=== PATIENT | female | born 1940 | race Caucasian/White ===

== ENCOUNTER 2019-05-12 22:07 | Emergency (ER) | payer MEDICARE, OTHER ==
[~2019-05-12] VITALS: Ht 162.6 cm; Wt 65.8 kg
[2019-05-12 23:04] LABS: ABSOLUTE BASOPHILS 0.1 thou/uL (0.0-0.2); ABSOLUTE EOSINOPHILS 0.1 thou/uL (0.0-0.7); ABSOLUTE LYMPHOCYTES 1.2 thou/uL (0.8-5.3); ABSOLUTE MONOCYTES 0.6 thou/uL (0.0-1.2); ABSOLUTE NEUTROPHILS 4.6 thou/uL (1.6-8.1); BASOPHILS 1.1 %; EOSINOPHILS 1.9 %; HEMATOCRIT 40.1 % (37.0-47.0); HEMOGLOBIN 13.4 gm/dL (12.0-15.0); LYMPHOCYTES 18.4 %; MCH 27.1 pg (26.0-34.0); MCHC 33.5 g/dL (28.0-37.0); MCV 80.9 fL (80.0-100.0); MONOCYTES 9.3 %; MPV 8.9 fl. (7.2-11.1); NUCLEATED RBCS 0 /100WBC; PLATELET COUNT* 151 thou/uL (150-400); POLYS 69.3 %; RBC 4.95 mil/uL (4.20-5.00); RDW-CV 26.3 % (10.5-14.5); WBC 6.6 thou/uL (4.0-11.0)
[2019-05-12 23:12] LABS: CREATININE 0.8 mg/dL (0.6-1.3); POTASSIUM 3.6 mmol/L (3.5-5.1)
[2019-05-12 23:17] LABS: ALBUMIN 3.3 g/dL (3.4-5.0); TOTAL BILIRUBIN 0.8 mg/dL (<0.1-1.0); TOTAL PROTEIN 6.9 g/dL (6.4-8.2)
[2019-05-12 23:37] LABS: INFLUENZA A ANTIGEN Negative (Negative); INFLUENZA B ANTIGEN Negative (Negative)
[2019-05-13 00:55] LABS: URINE BILIRUBIN NEGATIVE (Negative); URINE BLOOD NEGATIVE (Negative); URINE CLARITY CLEAR; URINE COLOR YELLOW; URINE GLUCOSE-RANDOM NEGATIVE (Negative); URINE KETONES TRACE (Negative); URINE LEUKOCYTES-REFLEX NEGATIVE (Negative); URINE NITRITE-REFLEX NEGATIVE (Negative); URINE PROTEIN NEGATIVE (Negative); URINE UROBILINOGEN 0.2 E.U./dl (0.2-1.0)
[2019-05-13 01:03] VITALS: BP 140/66
[2019-05-13 03:07] LABS: ANISOCYTOSIS 2+; POIKILOCYTOSIS 2+
[2019-05-13 03:08] LABS: OVALOCYTES 1+; POLYCHROMASIA 1+; SCHISTOCYTES 1+; TARGET CELLS 1+; TEARDROPS 1+
--- NOTE | 2019-05-13 11:45 | EKG ---
[place] [address] ELECTROCARDIOGRAM REPORT Name: AUBRIE CARNES [id number] Admission: 05/12/19 Attend Phys: Discharge: 05/13/19 Date of : 38 Report #: [id number] THIS REPORT FOR: //name// [facility] ED Test Date: 2019-05-12 Test Time: 22:13:50 Pat Name: AUBRIE CARNES Department: Room: Gender: F Water Pump Operator: DEMETRIUS : 1940 Requested By: Apoorva Macedo Order Number: [id number] Reading MD: Lukas Peres Measurements Intervals [place] Rate: 87 P: [place]: QRS: 83 QRSD: 102 T: -14 QT: 411 QTc: 495 Interpretive Statements Atrial fibrillation Anterior infarct, old Borderline T abnormalities, inferior leads No previous ECG available for comparison Electronically Signed On 05-13-2019 11:45:05 OWNER OPERATOR by Lukas Peres [email or web address] <ELECTRONICALLY SIGNED> By: Lukas Peres MD, [facility] 05/13/19 1145 2213 2213 Lukas Peres MD, FACC /EPI
[2019-05-14] MEDS ORDERED: HYDRALAZINE 2525 M1 PO (16:10)
[2019-05-14] MEDS ORDERED: CLONAZEPAM 0.50.5 M1 PO (16:11)
[2019-05-14] MEDS ORDERED: COZAAR 25 MG TA25 M1 PO (16:11)
[2019-05-14] MEDS ORDERED: LEVO-T25 MCG PO (16:11)
[2019-05-14] MEDS ORDERED: LIPITOR 20 MG T20 M1 PO (16:11)
[2019-05-14] MEDS ORDERED: DRIZALMA SPRINK20 MG PO (16:12)
[2019-05-14] MEDS ORDERED: SORINE 80 MG TA80 MG PO (16:12)
== END 2019-05-13 01:03 | disposition home or self-care (01) ==
LOC: M.ERS 22:07
PROVIDERS: Personal Emergency Response Attendant
DX: R55 Syncope and collapse (principal); I48.91 Unspecified atrial fibrillation; Z88.8 Allergy status to other drugs, medicaments and biological substances

== ENCOUNTER 2019-05-14 15:45 | Observation (INO) | payer MEDICARE, OTHER ==
[~2019-05-14] VITALS: Ht 162.6 cm; Wt 65.8 kg
--- NOTE | ~2019-05-14 | EKG ---
[place] [address] ELECTROCARDIOGRAM REPORT Name: AUBRIE CARNES Room: [address]#: [id number] Admission: 05/14/19 Attend Phys: Rani Nolen, Discharge: Date of : 38 Date of Service: 05/15/19 0812 Report #: [id number] THIS REPORT FOR: cc: DINA GORDON MD, CHADWICK MD Epiphany, Epiphany MD ~ THIS REPORT FOR: //name// [facility] ED Test Date: 2019-05-15 Test Time: 08:12:25 Pat Name: AUBRIE CARNES Department: Room: [place] [address] Gender: F Research Center Partner: : 1940 Requested By: Ludwig Gallagher Order Number: [id number] Reading MD: Measurements Intervals [place] Rate: 89 P: [place]: QRS: 92 QRSD: 91 T: -61 QT: 395 QTc: 481 Interpretive Statements Atrial fibrillation Right axis deviation Anteroseptal infarct, old Borderline repolarization abnormality Baseline wander in lead(s) II,aVR Compared to ECG 05/12/2019 22:13:50 Right-axis deviation now present T-wave abnormality no longer present Myocardial infarct finding still present [email or web address] By: 1 1 Epiphany EpiphMD darian /SAI
[2019-05-14 16:04] VITALS: BP 180/124
[2019-05-14] MEDS ORDERED: HYDRALAZINE 2525 M1 PO (16:10)
[2019-05-14] MEDS ORDERED: COZAAR 25 MG TA25 M1 PO (16:11)
[2019-05-14] MEDS ORDERED: LEVO-T25 MCG PO (16:11)
[2019-05-14] MEDS ORDERED: LIPITOR 20 MG T20 M1 PO (16:11)
[2019-05-14] MEDS ORDERED: CLONAZEPAM 0.50.5 M1 PO (16:11)
[2019-05-14] MEDS ORDERED: DRIZALMA SPRINK20 MG PO (16:12)
[2019-05-14] MEDS ORDERED: SORINE 80 MG TA80 MG PO (16:12)
[2019-05-14 18:18] LABS: CALCIUM 9.6 mg/dL (8.5-10.1); CREATININE 0.8 mg/dL (0.6-1.3); POTASSIUM 3.9 mmol/L (3.5-5.1)
[2019-05-14 21:55] VITALS: BP 161/54
[2019-05-15 02:20] VITALS: BP 159/80
[2019-05-15 06:07] VITALS: BP 152/72
[2019-05-15 08:28] VITALS: BP 152/65
[2019-05-15] MEDS ORDERED: FLONASE 0.05%50 MCG NASAL (08:59)
[2019-05-15] MEDS ORDERED: PREDNISONE 20 M20 M1 PO (08:59)
[2019-05-15] MEDS ORDERED: AUGMENTIN 875-1 EACH PO (08:59)
[2019-05-15 12:49] VITALS: BP 114/49
[2019-05-15 13:35] VITALS: BP 128/61
== END 2019-05-15 13:35 | disposition home or self-care (01) ==
LOC: M.ERS 15:45 → M.TBA-ER 19:45
PROVIDERS: Emergency Medicine Emergency Medical Services; ADMIT Internal Medicine
DX: R51 Headache (principal); J06.9 Acute upper respiratory infection, unspecified; B96.89 Other specified bacterial agents as the cause of diseases classified elsewhere; I10 Essential (primary) hypertension

== ENCOUNTER 2019-05-26 08:35 | Emergency (ER) | payer MEDICARE, OTHER ==
[~2019-05-26] VITALS: Ht 162.6 cm; Wt 63.5 kg
[~2019-05-26 08:35] MED LIST: AUGMENTIN 875-1 EACH PO; CLONAZEPAM 0.50.5 M1 PO; COZAAR 25 MG TA25 M1 PO; DRIZALMA SPRINK20 MG PO; FLONASE 0.05%50 MCG NASAL; HYDRALAZINE 2525 M1 PO; LEVO-T25 MCG PO; LIPITOR 20 MG T20 M1 PO; PREDNISONE 20 M20 M1 PO; SORINE 80 MG TA80 MG PO
[2019-05-26] MEDS ORDERED: ASA81BEC PO (08:59)
[2019-05-26] MEDS ORDERED: PROTONIX40 M4 PO (09:00)
[2019-05-26 09:20] LABS: ABSOLUTE LYMPHOCYTES 0.9 thou/uL (0.8-5.3); ABSOLUTE NEUTROPHILS 10.6 thou/uL (1.6-8.1); BASOPHILS 0.4 %; HEMATOCRIT 41.6 % (37.0-47.0); LYMPHOCYTES 7.3 %; MCH 27.1 pg (26.0-34.0); MCHC 33.6 g/dL (28.0-37.0); MCV 80.7 fL (80.0-100.0); MONOCYTES 8.1 %; MPV 8.6 fl. (7.2-11.1); NUCLEATED RBCS 0 /100WBC; PLATELET COUNT* 146 thou/uL (150-400); POLYS 84.2 %; RBC 5.16 mil/uL (4.20-5.00); RDW-CV 25.6 % (10.5-14.5); WBC 12.6 thou/uL (4.0-11.0)
[2019-05-26 09:22] LABS: BE 5.5 mmol/L (-2 to +3); PCO2 33.1 mmHg (35.0-45.0); PO2 79.2 mmHg (75.0-100.0)
[2019-05-26 09:23] LABS: CALCIUM 8.4 mg/dL (8.5-10.1); CREATININE 0.8 mg/dL (0.6-1.3); POTASSIUM 3.5 mmol/L (3.5-5.1)
[2019-05-26 09:28] LABS: ALBUMIN 3.1 g/dL (3.4-5.0); MAGNESIUM 1.8 mg/dL (1.8-2.4); TOTAL BILIRUBIN 0.6 mg/dL (<0.1-1.0); TOTAL PROTEIN 7.2 g/dL (6.4-8.2)
[2019-05-26] MEDS ORDERED: ELIQUIS5 MG PO (10:43)
[2019-05-26 11:17] LABS: APTT 29.4 Seconds (25.0-31.3); INR 1.1; PROTIME 10.8 Seconds (9.20-11.50)
[2019-05-26 11:20] VITALS: BP 170/72
--- NOTE | 2019-05-27 13:57 | EKG ---
[place] [address] ELECTROCARDIOGRAM REPORT Name: AUBRIE CARNES Room: [facility]#: [id number] Admission: 05/26/19 Attend Phys: Discharge: 05/26/19 Date of : 38 Date of Service: 05/26/19 0851 Report #: [id number] THIS REPORT FOR: cc: DINA GORDON MD, CHADWICK MD Holkins,Arik Penny MD [facility] ~ THIS REPORT FOR: //name// [facility] ED Test Date: 2019-05-26 Test Time: 08:51:54 Pat Name: AUBRIE CARNES Department: Room: Gender: F Head Of Academic Technology: MARCIA : 1940 Requested By: Apoorva Macedo Order Number: [id number] Reading MD: Arik Velez Measurements Intervals [place] Rate: 77 P: [place]: QRS: 97 QRSD: 110 T: -65 QT: 407 QTc: 461 Interpretive Statements Atrial fibrillation Right axis deviation Anteroseptal infarct, old possible Nonspecific repol abnormality, lateral leads Compared to ECG 05/15/2019 08:12:25 No significant changes Electronically Signed On 05-26-2019 16:09:40 MEDICAL OFFICE SUPERVISOR by Arik Velez [email or web address] <ELECTRONICALLY SIGNED> By: Arik Velez MD, [facility] 05/26/19 1609 0 0851 Arik Velez MD, [facility] /EPI
== END 2019-05-26 11:20 | disposition short-term general hospital (02) ==
LOC: M.ERS 08:35
PROVIDERS: Personal Emergency Response Attendant
DX: I60.9 Nontraumatic subarachnoid hemorrhage, unspecified (principal); I48.91 Unspecified atrial fibrillation; Z98.890 Other specified postprocedural states; Z88.8 Allergy status to other drugs, medicaments and biological substances

== ENCOUNTER 2019-06-11 13:16 | Inpatient (IN) | payer MEDICARE, OTHER ==
[~2019-06-11] VITALS: Ht 162.6 cm; Wt 63.0 kg
[~2019-06-11 13:16] MED LIST changes: +ASA81BEC PO; +ELIQUIS5 MG PO; +PROTONIX40 M4 PO
[2019-06-11] MEDS ORDERED: SYNTHROID112 MC1 PO (14:43)
[2019-06-11] MEDS ORDERED: PROVIGIL 100 M100 MG PO (14:45)
[2019-06-11] MEDS ORDERED: CALCIUM + VITA1 EACH PO (14:47)
[2019-06-11] MEDS ORDERED: FUROSEMIDE 20 M20 MG PO (14:48)
[2019-06-11] MEDS ORDERED: CARVEDILOL25 MG PO (14:50)
[2019-06-11] MEDS ORDERED: OXYCODONE HCL 55 MG PO (14:56)
[2019-06-11] MEDS ORDERED: TYLENOL EXTRA500 MG PO (14:59)
--- NOTE | 2019-06-11 17:45 | NUR ---
79 YR OLD FEMALE ADMITTED TO ROOM 320 S/P RIGHT CRANIOTOMY. PT FELL 05/24 AND CAME TO THE ED 05/26 C/O HEADACHES AND AMS. SHE WAS TRANSFERRED TO [facility] WHEN SHE WAS FOUND TO HAVE A SUBARACHNOID HEMORRHAGE AND A SUB VENTRICULAR HEMORRAGE. PT TRANSFERRED FROM THE WHEELCHAIR TO BED WITH MIN ASSIST. PT IS AMBULATORY WITH A WALKER. ADMISSION PROCESS COMPLETED, FALL PRECAUTIONS AND HOURLY ROUNDING INITIATED.
[2019-06-11 20:16] VITALS: BP 164/66
--- NOTE | 2019-06-12 05:10 | NUR ---
ASSUMED PT CARE AT 1930. PT ALERT AND ORIENTED X4, ANXIOUS. PT TOOK HS MEDS WITH WATER WITHOUT DIFFICULTY. TYLENOL ONCE THIS SHIFT FOR HEADACHE. WORE HOME CPAP PART OF THE NIGHT. PT SET OFF BED ALARM FOUR TIMES GETTING OUT OF BED TO GO TO THE BATHROOM. PT TRANSFERS WITH GAITBELT, WALKER AND MIN ASSIST. RK TO SCALP INTACT. ADMISSION PAPERWORK SIGNED. PT REASSURED REGARDING REHAB ROUTINE AND WHAT TO EXPECT. CALL LIGHT IN REACH. BED ALARM ON FOR SAFETY. HOURLY ROUNDING IN PROGRESS, WILL CONTINUE TO MONITOR.
[2019-06-12 05:17] LABS: HEMATOCRIT 27.6 % (37.0-47.0); HEMOGLOBIN 9.5 gm/dL (12.0-15.0); MCH 28.6 pg (26.0-34.0); MCHC 34.4 g/dL (28.0-37.0); MCV 83.1 fL (80.0-100.0); MPV 7.1 fl. (7.2-11.1); RBC 3.32 mil/uL (4.20-5.00); RDW-CV 25.1 % (10.5-14.5); WBC 6.6 thou/uL (4.0-11.0)
[2019-06-12 05:40] LABS: ALBUMIN 2.3 g/dL (3.4-5.0); CALCIUM 8.7 mg/dL (8.5-10.1); CREATININE 0.6 mg/dL (0.6-1.3); POTASSIUM 4.1 mmol/L (3.5-5.1); TOTAL BILIRUBIN 0.3 mg/dL (<0.1-1.0); TOTAL PROTEIN 6.7 g/dL (6.4-8.2)
[2019-06-12 07:40] VITALS: BP 186/91
[2019-06-12 11:00] VITALS: BP 92/43
[2019-06-12 13:00] VITALS: BP 114/54
--- NOTE | 2019-06-12 13:02 | NUR ---
Nutrition: Pt admitted to rehab with TBI. 2gm Na diet. Wt: 137#. Albumin 3.2. Rx, labs, hx noted. No swallowing issues. Will follow weekly. Low nutrition risk.
--- NOTE | 2019-06-12 16:39 | NUR ---
SW met with pt and pt ex brother in law to complete initial assessment, introduce self, and SW role on inpt rehab unit. Pt alert, oriented. Pt lives at home with ex brother in law as roommate. Pt has sons who are supportive and are DPOAs. Pt said she would be only one to be informed after team conference and she would tell her family. Pt was independent and driving prior to hospitalization. Pt has 2 steps into home from outside and one step into home from garage. Pt was independent with ADLs as well. The home is ranch style so there are not stairs inside. Pt has FWW. Pt has hx of HH services after prior surgeries but does not recall the name of the agency at this time. Pt PCP is Dr Yang and she has had appt with within the last 6 months. SW to continue to follow to assist with safe dc planning.
--- NOTE | 2019-06-12 17:41 | NUR ---
PT HAS WORKED WITH THERAPIES AND IS REMINDED TO CALL FOR ASSIST. HERE PART OF DAY. PRN FOR HEADACHE GIVEN X2 TODAY WITH FAIR EFFECT. THERAPY WOULD LIKE PT TO NOT USE WALKER UNLESS NEEDED AND AMBULATE WITH GAITBELT AND MIN ASSIST UNLESS BECOMES UNSTEADY.PT CONTINENT OF B+B.PT QUIET BUT ALERT AND APPROPIATE.
[2019-06-12 20:00] VITALS: BP 153/73
--- NOTE | 2019-06-13 05:54 | NUR ---
ASSUMED CARE AT 1930. PATIENT RESTING IN BED AT CHANGE OF SHIFT. UP WITH ONE, GAIT BELT, NO WALKER. IS UNSTEADY UPON FIRST RISING FROM BED, AND USES SINK FOR BALANCE WHEN SHE WALKS PAST IT. NEEDS CUEING TO COMPLETE HAND WASHING TASKS AT TIMES. TAKES PILLS WHOLE ONE AT A TIME WITH WATER. WEARS O2 2L/NC. REFUSED CPAP STATING THAT "IT DOESN'T WORK SOMETIMES, CAN I JUST WEAR OXYGEN?" NO C/O PAIN. HEAD INCISION WELL HEALED. HOURLY ROUNDS CONTINUE. BED ALARM ON. CALL LITE IN REACH.
[2019-06-13 07:00] VITALS: BP 187/74
[2019-06-13 13:00] VITALS: BP 167/76
--- NOTE | 2019-06-13 17:20 | NUR ---
ALERT AND ORIENTED WITH OCCASSIONAL PERIODS OF FORGETFULNESS. USING PO PAIN MEDICATION TO HELP WITH PAIN. UP WITH 1 ASSIST, GAIT BELT AND WALKER. NEW ORDER FOR MELATONIN TO HELP PATIENT SLEEP AND USE CPAP MACHINE. HEALING INCISION RIGHT SIDE OF HEAD WITH NO SIGNS OR SYMPTOMS OF INFECTION. NO C/O NUMBNESS OR TINGLING. PATIENT USING CALL LIGHT WITHIN REACH. FALL PRECAUTIONS IN PLACE. BED ALARM AND CHAIR ALARM USED.
[2019-06-13 20:30] VITALS: BP 140/58
--- NOTE | 2019-06-14 05:33 | NUR ---
ASSUMED CARES AT 1920. ALERT AND ORIENTED. WORE CPAP OVERNIGHT. MIN ASSIST WITH GAIT BELT AND WALKER. UP TO BATHROOM. SLEPT MOST OF THE NIGHT. NO ISSUES. CALL LIGHT IN REACH AND BED ALARM ON.
[2019-06-14 06:14] VITALS: BP 159/62
[2019-06-14 07:31] VITALS: BP 145/66
--- NOTE | 2019-06-14 10:48 | CON ---
[facility] [address] [place] [address] CONSULTATION Name: AUBRIE CARNES Room: [address] IN M.R.#: [id number] Admission: 06/11/19 Attend Phys: Edilberto Wallace MD Discharge: Date of : 38 Report #: [id number] THIS REPORT FOR: //name// cc: DINA GORDON MD, CHADWICK MD ~ THIS REPORT FOR: //name// CC: DINA Wallace DATE OF SERVICE: 06/12/2019 CARDIOLOGY CONSULTATION HISTORY OF PRESENT ILLNESS: The patient is an 79-year-old single white female who I was asked to see in the hospital today because of elevated blood pressure. The patient has an extensive and complicated past medical history. She apparently had 5-vessel coronary artery bypass surgery at [facility] about 5 years ago. Apparently a year ago, she underwent percutaneous repair of the tricuspid valve at [facility]. Apparently a month later, however, she underwent TAVR of her aortic valve. She has a long history of atrial fibrillation and has been on Eliquis. She stays very active at this time. Apparently a month ago, the patient was confused and had a syncopal spell. Her took her to the Emergency Room at [facility] in [facility] and she was sent home. However, she continued to fall and her brought her back here to [place] where a CT scan showed evidence of an intracranial bleed. She was life flighted from [place] to [facility] and had a craniotomy for evacuation of the bleed. She was in the hospital there about 3 weeks. She has had elevated blood pressure that has been labile and a fever. Yesterday, she was transferred from [facility] to the rehab floor here at [place]. Because of her blood pressure, Cardiology consultation was requested. PAST MEDICAL HISTORY: Otherwise significant for cholecystectomy, hysterectomy, hypertension, hyperlipidemia. MEDICATIONS: Her previous medications include Lipitor, lisinopril, aspirin, Eliquis for atrial fibrillation. ALLERGIES: SHE HAS AN ALLERGY TO CODEINE. FAMILY HISTORY: Mother had heart disease. SOCIAL HISTORY: Single, lives with a significant other in [place]. She quit smoking years ago, [place] [address] CONSULTATION Name: AUBRIE CARNES Room: [address] IN [facility]#: [id number] Admission: 06/11/19 Attend Phys: Edilberto Wallace MD Discharge: Date of : 38 Report #: [id number] REVIEW OF SYSTEMS: She has no history of stroke, asthma, liver disease, kidney disease. She has a history of anemia and has required iron infusions in the past. No cancer. No psychiatric illness. PHYSICAL EXAMINATION: GENERAL: Revealed an elderly female lying in bed. She appeared in no distress. VITAL SIGNS: She had a blood pressure of 160/70, pulse is 80, she is afebrile. HEENT: She is anicteric. Conjunctivae pink. Mucous membranes moist. CHEST: Clear to auscultation. CARDIOVASCULAR: Regular rate and rhythm, grade 2 systolic ejection murmur. ABDOMEN: Soft. EXTREMITIES: No edema. SKIN: Warm and dry. NEUROLOGIC: Nonfocal. LABORATORY DATA: Her workup here at [place] included BUN 14, creatinine 0.6. Liver function studies were normal. White blood cell count 6.6, hemoglobin 9.5, hematocrit 27.6. IMPRESSION AND RECOMMENDATIONS: 1. Permanent atrial fibrillation. The patient is not on Eliquis at this time due to recent intracranial bleed. 2. Coronary artery bypass surgery. No recent angina. 3. Hypertension. The patient has been on GO inhibitor. 4. Hyperlipidemia. The patient is on a statin drug. 5. Previous transcatheter aortic valve replacement. <ELECTRONICALLY SIGNED> By: Lukas Peres MD, [facility] 06/14/19 1048 1135 [id number] Peres MD, FAC /nt
[2019-06-14 12:25] VITALS: BP 140/66
--- NOTE | 2019-06-14 13:24 | NUR ---
ASSUMED CARE AT 0730. ALERT ORIENTED PLEASANT COOPERATIVE. HX OF SDH WITH CRANIOTOMY. INCISION RT. SIDE OF HEAD HEALED MORTEZA. DOES C/O HEADACHE AT INTERVALS. TAKES MEDS WITHOUT DIFFICULTY. TYLENOL 2 TABS PO FOR H/A THIS A.M. TRANSFERS WITH SBA G BELT WALKER AMBULATES TO TOILET TO VOID AND HAD A BM ABLE TO DO HYGEINE AND CLOTHING ADJUSTMENTS. USES CALL LIGHT APPROPRIATELY FOR ASSISTANCE. SIGNIFICENT OTHER HERE TO VISIT THIS A.M. APPETITE FAIR AT BREAKFAST GOOD AT LUNCH MEAL. C/O LIGHTHEADEDNESS AFTER AMBULATION FROM DR TO ROOM BP WAS 140/66 P 80. O2 SAT 96% RA.
[2019-06-14 17:00] VITALS: BP 143/68
--- NOTE | 2019-06-14 17:14 | NUR ---
PT. STATES SHE DOESNT FEEL WELL TODAY VAGUE ABOUT WHY, VS WNL. AMBULATED IN HALLS X 2 TODAY UP IN RECLINER X 2. REASURANCE GIVEN.
[2019-06-14 19:30] VITALS: BP 122/64
--- NOTE | 2019-06-15 01:32 | NUR ---
ASSUMED CARE @ 1914-06/13-SUN.APPEARS SLEEPING IN BED W/ O2 ON @ 2L/NC.SEE PAIN MANAGEMENTS FOR FRONTAL HEADFACHE 2X @ 2050 & 0114.PRN MOM GIVEN ORAL @ 2050-PER PTS REQUEST.C PAP ON @ 2099 BUT REQUESTED OFF @ 010.HEAD BANDS ON C PAP IRRITATES DRY WOUND ON RIGHT SIDE HEAD.PLACED BACK ON O2 @ 2L/NC.HOB UP. ON HOURLY ROUNDS.HISTOLOGY TECH DOING ODD HOUR ROUNDS.
--- NOTE | 2019-06-15 05:16 | NUR ---
SLEEPING EARLY SINCE 1915 & SLEPT GOOD ALL NIGHT.BRP W/ SBA X2.TOOK ICED TEA W/ HS MEDS.TURNS SELF @ NIGHT.
[2019-06-15 06:00] VITALS: BP 126/53
[2019-06-15 07:27] VITALS: BP 140/61
--- NOTE | 2019-06-15 17:20 | NUR ---
ALERT AND ORIENTED X4 WITH PERIODS OF FORGETFULNESS. UP WITH STAND BY ASSIST, GAIT BELT AND WALKER. USED PO PAIN MEDICATION TO HELP WITH HEADACHE PAIN. O2 SAT TODAY ON ROOM AIR 97%. INCISION RIGHT SIDE OF HEAD HEALING WITH NO SIGNS OR SYNPTOMS OF INFECTIONS. USES CALL LIGHT WITHIN REACH. FALL PRECAUTIONS IN PLACE. BED ALARM AND CHAIR ALARM USED.
[2019-06-15 17:31] VITALS: BP 130/54
[2019-06-15 19:05] VITALS: BP 138/55
--- NOTE | 2019-06-16 04:52 | NUR ---
ASSUMED CARES AT 1920. ALERT AND ORIENTED. PLEASANT. PAIN MEDS GIVEN FOR HEADACHE. 02 2L NC. MIN ASSIST WITH GAIT BELT. UP TO BATHROOM. SLEPT MOST OF THE NIGHT. CALL LIGHT IN REACH AND BED ALARM ON.
[2019-06-16 06:24] VITALS: BP 140/67
[2019-06-16 07:27] VITALS: BP 127/56
--- NOTE | 2019-06-16 10:55 | NUR ---
PT BECAME DIZZY WHILE SITTING IN CHAIR IN HALLWAY AND NAUSEA. PT STARTED TO AMBULATE TO BATHROOMAND STARTED HAVING EMISIS OF UNDIGESTED FOODS. AFTER SITTING PT DID AMBULATE TO BATHROOM AND HAD INC BM.PT REMAINED ALERT AND ORIENTATED. PERICARE GIVEN AND PT AMBULATED TO BED. PB WAS 107/40 WITH PULSE 85.PT RESTS IN BED.
[2019-06-16 11:15] VITALS: BP 117/59
[2019-06-16 13:22] LABS: ABSOLUTE BASOPHILS 0.1 thou/uL (0.0-0.2); ABSOLUTE EOSINOPHILS 0.2 thou/uL (0.0-0.7); ABSOLUTE LYMPHOCYTES 0.9 thou/uL (0.8-5.3); ABSOLUTE MONOCYTES 0.7 thou/uL (0.0-1.2); ABSOLUTE NEUTROPHILS 6.2 thou/uL (1.6-8.1); BASOPHILS 0.6 %; EOSINOPHILS 2.8 %; HEMATOCRIT 29.2 % (37.0-47.0); HEMOGLOBIN 9.9 gm/dL (12.0-15.0); LYMPHOCYTES 10.6 %; MCH 28.9 pg (26.0-34.0); MCHC 33.9 g/dL (28.0-37.0); MCV 85.4 fL (80.0-100.0); MPV 7.1 fl. (7.2-11.1); NUCLEATED RBCS 0 /100WBC; PLATELET COUNT* 312 thou/uL (150-400); RBC 3.42 mil/uL (4.20-5.00); RDW-CV 25.1 % (10.5-14.5)
[2019-06-16 13:24] LABS: CALCIUM 8.3 mg/dL (8.5-10.1); CREATININE 0.6 mg/dL (0.6-1.3); POTASSIUM 4.2 mmol/L (3.5-5.1)
[2019-06-16 13:56] LABS: ANISOCYTOSIS 2+; PLATELET ESTIMATE ADEQUATE
[2019-06-16 14:51] VITALS: BP 136/55
--- NOTE | 2019-06-16 18:35 | NUR ---
PT UP TO CHAIR WITH MIN ASSIST AND AMBULATES TO BATHROOM WITH WALKER,GAITBELT AND MIN ASSIST. PT CONTINENT OF B+B.PRN FOR HEADACHE GIVEN WITH FAIR EFFECT. PT HAS NOT HAD FURTHER EMISIS SINCE THIS AM. BP IS STABLE THRU AFTERNOON AND EVENING. PT REMAINS ALERT AND ORIENTATED. HERE TO VISIT THIS AFTERNOON.
[2019-06-16 19:15] VITALS: BP 115/40
--- NOTE | 2019-06-17 01:47 | NUR ---
ASSUMED CARE @ 1919-.APPEARS SLEEPING IN BED W/ HOB UP.02 ON @ 2L/NC. BED ALARM ALREADY ON @ 1919.AWAKENED @ 2039 FOR HS MEDS & FOR ASSESSMENT. C PAP PUT ON BY PATIENT IND @ 2119 & THEN REMOVED @ 129-06/16-SAT.O2 PUT ON @ 2119.TURNS SELF @ NIGHT.ON HOURLY ROUNDS.CRACKING UNIT OPERATOR DOING ODD HOUR ROUNDS.
--- NOTE | 2019-06-17 05:14 | NUR ---
SLEEPING ALREADY @ 1920 & SLEPT ALL NIGHT.TOOK 50% STRAWBERRY ENSURE HS SNACK.WEARS PULL UPS.BRP W/ SBA X2.NO EPISODE OF DIZZINESS,NAUSEA NOR EMESIS DURING NIGHT.
[2019-06-17 05:45] VITALS: BP 151/59
[2019-06-17 07:00] VITALS: BP 157/57
[2019-06-17 14:00] VITALS: BP 132/56
--- NOTE | 2019-06-17 15:47 | NUR ---
CLAY and Dr Wallace met with pt and pt ex brother in law to review team conference summary and plan for pt to continue therapies a few more days with dc home with supervision on Wednesday 06/21. FT to be completed with pt ex brother in law. HH services recommended at dc: RN PT OT ST and ST OP after HH is also recommended. Pt in agreement with plan. SW to continue to follow to assist with safe dc planning.
--- NOTE | 2019-06-17 16:07 | NUR ---
ASSUMMED CARE OF PT AT 0730, PT ALERT AND ORIENTED, SLOW TO RESPOND AT TIMES, TRANSFERS WITH SBA, GB WALKER, AMBULATES TO BATHROOM TO VOID, BM X 1 THIS SHIFT, C/O HEADACHE, MEDICATED PER ORDER, INCISION TO HEAD HEALED WITH SMALL SCABBED AREA, PT SATS 97% ON RA BUT FEELS ANXIOUS AT TIMES AND WANTS O2 ON, PT AWARE SHE NEEDS TO WEAN FROM THE USE OF O2, TAKING FOOD AND FLUIDS WELL, PARTICIPATED IN ALL THERAPIES, HOURLY ROUNDING COMPLETED, ASSESSMENT COMPLETE, WILL CONTINUE TO MONITOR.
[2019-06-17 19:48] VITALS: BP 143/49
--- NOTE | 2019-06-18 05:05 | NUR ---
ASSUMED PT CARE AT 1930. PT ALERT AND ORIENTED X4, POLITE AND COOPERATIVE WITH CARES. TRANSFERS WITH SBA, GAIT BELT AND WALKER TO BATHROOM TO VOID. NO STOOL THIS SHIFT. PT C/O HEADACHE, OXYCODONE GIVEN WITH HS MEDS. INCISION TO SCALP HEALED, SMALL SCABBED AREA BY RIGHT EAR. MEPILEX CUT TO COVER SCABBED AREA TO PREVENT CPAP STRAP FROM IRRITATING SAME. NO C/O DIZZINESS, NAUSEA OR EMESIS OVERNIGHT. PT SLEPT WELL. TURNS SELF. BED ALARM ON FOR SAFETY. PT CALLS OUT FOR ASSIST BUT STARTS GETTING OUT OF BED IMMEDIATELY AFTER CALLING OUT. PT WOULD PREFER TO TAKE MIRALAX WHICH SHE TAKES DAILY AT HOME, DECLINED COLACE AT HS. CALL LIGHT AND FREQUENTLY USED ITEMS IN REACH, BED ALARM ON FOR SAFETY. HOURLY ROUNDING IN PROGRESS, WILL CONTINUE TO MONITOR.
--- NOTE | 2019-06-18 06:37 | NUR ---
PT REQUESTED PAIN MEDICATION WITH MORNING MEDS FOR A HEADACHE RATED 8/10. PER PT SHE BEGAN HAVING SEVERE HEADACHES ABOUT A MONTH BEFORE HER BRAIN HEMHORRAGE. SHE IS WORRIED THAT SHE IS STILL HAVING HEADACHES. ADVISED HER TO BRING UP HER CONCERNS WITH DR. DE LA GARZA.
[2019-06-18 07:19] VITALS: BP 157/52
--- NOTE | 2019-06-18 18:58 | NUR ---
AM ASSESSMENT AND VITAL SIGNS COMPLETED DOCUMENTED. PT C/O HEADACHES AND HAS A FOLLOW UP CT SCHEDULED ON SATURDAY FOLLOWED BY AN APPT WITH HER NEURO SURGEON.
[2019-06-18 20:00] VITALS: BP 146/57
--- NOTE | 2019-06-19 05:31 | NUR ---
ASSUMED CARES AT 1920. ALERT AND ORIENTED. PLEASANT. CPAP AT NIGHT. MIN ASSIST WITH GAIT BELT AND WALKER. UP TO BATHROOM. SLEPT MOST OF THE NIGHT. CALL LIGHT IN REACH AND BED ALARM ON.
[2019-06-19 06:13] VITALS: BP 173/61
[2019-06-19 07:45] VITALS: BP 112/70
--- NOTE | 2019-06-19 14:59 | EKG ---
[place] [address] ELECTROCARDIOGRAM REPORT Name: AUBRIE CARNES Room: [address] ADM IN .R.#: [id number] Admission: 06/11/19 Attend Phys: Edilberto Wallace MD Discharge: Date of : 38 Date of Service: 06/13/19 1245 Report #: [id number] THIS REPORT FOR: //name// [facility] Test Date: 2019-06-13 Test Time: 12:45:23 Pat Name: AUBRIE CARNES Department: Room: [address] Gender: F Art Gilder: : 1940 Requested By: Lukas Peres Order Number: [id number] Reading MD: Lukas Peres Measurements Intervals [place] Rate: 72 P: [place]: QRS: 73 QRSD: 127 T: 13 QT: 407 QTc: 446 Interpretive Statements Atrial fibrillation Nonspecific intraventricular conduction delay Probable anteroseptal infarct, old Borderline T abnormalities, inferior leads Baseline wander in lead(s) V6 Compared to ECG 05/26/2019 08:51:54 Right-axis deviation no longer present Myocardial infarct finding still present Electronically Signed On 06-14-2019 11:06:08 SWEATBAND CUTTING MACHINE OPERATOR by Lukas Peres [email or web address] <ELECTRONICALLY SIGNED> By: Lukas Peres MD, FACC 06/14/19 1106 1245 1245 Lukas Peres MD, [facility] /EPI
--- NOTE | 2019-06-19 17:49 | NUR ---
ALERT AND ORIENTED X4. UP WITH STAND BY ASSIST, GAIT BELT AND WALKER. USING PO PAIN MEDICATION TO HELP WITH HEADACHES. DENIED DIZZINESS TODAY. DENIED NEED FOR O2 DURING DAYSHIFT. PARTICIPATED WITH THERAPIES TODAY. USES CALL LIGHT WITHIN REACH. FALL PRECAUTIONS IN PLACE WITH CHAIR AND BED ALARM ON.
[2019-06-19 20:00] VITALS: BP 143/55
--- NOTE | 2019-06-20 01:03 | NUR ---
ASSUMED CARE AT 1930. PATIENT RESTING IN BED. UP WITH SBA, GAIT BELT, WALKER, NEEDS CUEING. TAKES PILLS WHOLE WITH WATER. INCISION TO RT SIDE OF HEAD HEALING. PIT WORKER POWER SHOVEL AND C/D/I, WANTED TO WEAR CPAP THIS NOC INSTEAD OF O2. CALL LITE IN REACH. BED ALARM ON. HOURLY ROUNDS CONTINUE.
--- NOTE | 2019-06-20 06:10 | NUR ---
SLEPT MOST OF THE SHIFT EXCEPT TO VOID. NO C/O PAIN. USED CPAP THROUGH THE NIGHT. NO C/O PAIN. UP TO TOILET TO VOID. HOURLY ROUNDS CONTINUE. BED ALARM ON. CALL LITE IN REACH.
[2019-06-20 06:50] VITALS: BP 164/76
[2019-06-20 07:46] VITALS: BP 139/60
--- NOTE | 2019-06-20 16:57 | NUR ---
AM ASSESSMENT AND VITAL SIGNS COMPLETED DOCUMENTED. PT STATES HER HEADACHES HAVEN'T BEEN BAD TODAY AND SHE CONTINUES DENY DIZZINESS. PT CONTINUES TO MAKE PROGRESS WITH THERAPIES. FALL PRECAUTIONS AND HOURLY ROUNDING CONTINUE.
[2019-06-20 19:50] VITALS: BP 137/65
--- NOTE | 2019-06-21 05:28 | NUR ---
ASSUMED CARE AT 1930. PATIENT RESTING IN BED. VOIDS PER TOILET. UP WITH SBA, GAIT BELT, WALKER. LESS CUEING NEEDED TONIGHT. TAKES PILLS WHOLE WITH WATER. INCISION TO RIGHT SIDE OF HEAD HEALED AND CUT OUT MACHINE OPERATOR. WORE CPAP THROUGH NIGHT. NO C/O PAIN. SLEPT WELL THROUGH SHIFT ONLY AWAKENING TO VOID. CALL LITE IN REACH. BED ALARM ON. HOURLY ROUNDS CONTINUE.
[2019-06-21 06:25] VITALS: BP 139/70
[2019-06-21 08:07] VITALS: BP 120/65
[2019-06-21 14:00] VITALS: BP 120/57
--- NOTE | 2019-06-21 16:31 | NUR ---
ASSUMMED CARE OF PT AT 0730, PT ALERT AND ORIENTED, PT TRANSFERS WITH SBA, GB WALKER, C/O MILD HEADACHE, FIORICET GIVEN X 2 WITH GD RELIEF, TAKING FOOD AND FLUIDS WELL, AMBULATES TO TOILET TO VOID, BM X 1 THIS SHIFT, SIGNIFICANT OTHER HERE MUCH OF SHIFT, ASKING QUESTIONS REGARDING DISCHARGE PLANNED FOR TOMORROW, UP IN CHAIR MUCH OF SHIFT, AMBULATED IN HALLWAYS, HOURLY ROUNDING COMPLETED, ASSESSMENT COMPLETE, WILL CONTINUE TO MONITOR.
[2019-06-21 20:00] VITALS: BP 145/71
--- NOTE | 2019-06-22 05:26 | NUR ---
ASSUMED CARE AT 1930. PATIENT RESTING IN BED. TURNS SELF EASILY. UP WITH SBA, GAIT BELT, WALKER. VOIDS PER TOILET. TAKES PILLS WHILE WITH WATER. WORE CPAP THROUGH NIGHT. INCISION TO RT SIDE OF HEAD HEALED. NO C/O PAIN, DENIED HEADACHES. HOPING TO BE DISCHARGED TODAY. APPEARED SLEEPING ON ROUNDS. CALL LITE IN REACH, BED ALARM ON. HOURLY ROUNDS CONTINUE.
[2019-06-22 06:42] VITALS: BP 175/75
[2019-06-22 07:35] VITALS: BP 148/65
[2019-06-22 12:28] VITALS: BP 148/65
[2019-06-22] MEDS ORDERED: OXYCODONE HCL 55 MG PO (12:37)
[2019-06-22 12:44] VITALS: BP 148/65
[2019-06-22] MEDS ORDERED: BUTALB-APAP-CA1 EACH PO (12:46)
[2019-06-22 14:04] VITALS: BP 148/65
--- NOTE | 2019-06-22 14:07 | NUR ---
Pt to dc home with supervision today and HH services to follow. CLAY discussed HH options with pt and pt ex brother in law and pt/family preference for [facility]; SW faxed referral and orders/med list to intake at [facility] . Family here to provide pt ride home. Pt has needed DME at home already. [facility] [phone] fax [phone]
--- NOTE | 2019-06-22 15:08 | NUR ---
PT DISCHARGED TO HOME WITH AND IS ALERT AND ORIENTATED. PT HAS BEEN CONTINENT OF B+B. DISCUSSED DISCHARGE WITH PT AND WHO HAVE F/U APPOINTMENTS THIS WEEK. PT REPORTS FIORICET HAS HELPED HEADACHES AND HAS SCRIPT FOR HOME.PT TO CAR PER W/C WITH [employer].
== END 2019-06-22 15:13 | disposition home health service (06) | DRG 64 ==
LOC: M.REH 13:16
PROVIDERS: Internal Medicine; ADMIT Physical Medicine & Rehabilitation
PROC: 5A09357 Assistance with Respiratory Ventilation, Less than 24 Consecutive Hours, Continuous Positive Airway Pressure (ICD-10-PCS; principal; 2019-06-13)
PROC: 5A09357 Assistance with Respiratory Ventilation, Less than 24 Consecutive Hours, Continuous Positive Airway Pressure (ICD-10-PCS; 2019-06-14)
PROC: 5A09357 Assistance with Respiratory Ventilation, Less than 24 Consecutive Hours, Continuous Positive Airway Pressure (ICD-10-PCS; 2019-06-15)
PROC: 5A09357 Assistance with Respiratory Ventilation, Less than 24 Consecutive Hours, Continuous Positive Airway Pressure (ICD-10-PCS; 2019-06-16)
PROC: 5A09457 Assistance with Respiratory Ventilation, 24-96 Consecutive Hours, Continuous Positive Airway Pressure (ICD-10-PCS; 2019-06-18)
DX: I60.7 Nontraumatic subarachnoid hemorrhage from unspecified intracranial artery (principal); J96.90 Respiratory failure, unspecified, unspecified whether with hypoxia or hypercapnia; I48.21 Permanent atrial fibrillation; I50.32 Chronic diastolic (congestive) heart failure; G93.40 Encephalopathy, unspecified; E87.1 Hypo-osmolality and hyponatremia; D68.32 Hemorrhagic disorder due to extrinsic circulating anticoagulants; I95.9 Hypotension, unspecified; E78.5 Hyperlipidemia, unspecified; I25.10 Atherosclerotic heart disease of native coronary artery without angina pectoris; I11.0 Hypertensive heart disease with heart failure; F32.9 Major depressive disorder, single episode, unspecified; M81.0 Age-related osteoporosis without current pathological fracture; E03.9 Hypothyroidism, unspecified; Z95.2 Presence of prosthetic heart valve; G47.33 Obstructive sleep apnea (adult) (pediatric); R58 Hemorrhage, not elsewhere classified; T45.515A Adverse effect of anticoagulants, initial encounter; I73.9 Peripheral vascular disease, unspecified; J11.1 Influenza due to unidentified influenza virus with other respiratory manifestations; Z90.49 Acquired absence of other specified parts of digestive tract; Z90.710 Acquired absence of both cervix and uterus; Z88.6 Allergy status to analgesic agent; Z95.1 Presence of aortocoronary bypass graft; Z79.899 Other long term (current) drug therapy; Z79.82 Long term (current) use of aspirin; Z79.01 Long term (current) use of anticoagulants; Z83.3 Family history of diabetes mellitus; Z88.8 Allergy status to other drugs, medicaments and biological substances; Y92.89 Other specified places as the place of occurrence of the external cause